=== PATIENT | male | born 1950 | race Caucasian/White ===

== ENCOUNTER 2018-06-01 07:25 | Day surgery (SDC) | payer MEDICARE, BC ==
[2018-05-26 11:14] VITALS: BMI 29.5
[~2018-06-01 07:25] MED LIST: LACTATED RINGERS 1,000 ML IV SCH; LIDOCAINE 1% 20 ML VIAL (10MG/ML) FOR IV START INTRADERMA PRN
[2018-06-01 08:03] VITALS: RESP 16; TEMP 97.1
[2018-06-01] MEDS ORDERED: LIDOCAINE 1% INJ 10MG/ML (20 ML MDV) ONE (08:40)
[2018-06-01] MEDS ORDERED: PROPOFOL 10 MG/ML 20 ML VIAL IV ONE (08:40)
[2018-06-01] MEDS ORDERED: MIDAZOLAM 2 MG/2 ML VIAL ONE (08:40)
[2018-06-01] MEDS ORDERED: fentaNYL (PF) 50 MCG/ML 2 ML AMP ONE (08:40)
--- NOTE | 2018-06-01 08:46 | P.GSHP ---
History of Present Illness H&P Date: 06/01/18 CHIEF COMPLAINT: Colon screen HISTORY OF PRESENT ILLNESS: The patient is a 68-year-old male who presents for colon screen. Lower endoscopy was offered for further evaluation and management. PAST MEDICAL HISTORY: Please see list. PAST SURGICAL HISTORY: Please see list. MEDICATIONS: Please see list. ALLERGIES: Please see list. SOCIAL HISTORY: No illicit drug use FAMILY HISTORY: No reports of Crohn disease or ulcerative colitis. REVIEW OF ORGAN SYSTEMS: CONSTITUTIONAL: No reports of fevers or chills. PHYSICAL EXAM: VITAL SIGNS: Stable GENERAL: Well-developed pleasant in no acute distress. HEENT: No scleral icterus. Extraocular movements grossly intact. Moist buccal mucosa. NECK: Supple without lymphadenopathy. CHEST: Unlabored respirations. Equal bilateral excursions. CARDIOVASCULAR: Regular rate and rhythm. Distal 2+ pulses. ABDOMEN: Soft, nontender, nondistended. MUSCULOSKELETAL: No clubbing, cyanosis, or edema. ASSESSMENT: 1. Colon screen. PLAN: 1. 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), History of Any Multi-Drug Resistant Organisms: None Reported Past Surgical History: Appendectomy, Cholecystectomy, Orthopedic Surgery Additional Past Surgical History / Comment(s): uvuloplasty, left hand little finger surgery, COLONOSCOPY Past Anesthesia/Blood Transfusion Reactions: Previous Problems w/ Anesthesia, Motion Sickness Additional Past Anesthesia/Blood Transfusion Reaction / Comment(s): diff breathing- "tube down too far in rt bronch" Smoking Status: Never smoker - Past Family History Sister(s) Family Medical History: Cancer Medications and Allergies Home Medications Medication Instructions Recorded Confirmed Type Aspirin [Adult Low Dose Aspirin EC] 81 mg PO DAILY 09/17/15 06/01/18 History Atorvastatin Calcium [Lipitor] 40 mg PO DAILY 09/17/15 06/01/18 History Clopidogrel Bisulfate [Plavix] 75 mg PO DAILY 09/17/15 06/01/18 History Cholecalciferol [Vitamin D3] 1,000 unit PO DAILY 10/02/16 06/01/18 History Ginkgo Biloba [place] Extract [Ginkgo] 60 mg PO DAILY 10/02/16 06/01/18 History [place]-3 Fatty Acids/Fish Oil [Fish 1 each PO DAILY 10/02/16 06/01/18 History Oil 1,000 mg Softgel] Allergies Allergy/AdvReac Type Severity Reaction Status Date / Time Sulfa (Sulfonamide Allergy headache Verified 06/01/18 07:52 Antibiotics) scotch 77 Allergy Rash/Hives- Uncoded 06/01/18 07:52 Surgical - Exam Vital Signs Temp Pulse Resp BP Pulse Ox 97.1 F L 61 16 137/82 99 06/01/18 07:55 06/01/18 07:55 06/01/18 07:55 06/01/18 07:55 06/01/18 07:55
--- NOTE | 2018-06-01 09:08 | P.PCN ---
Date of Procedure: 06/01/18 Description of Procedure: PREOPERATIVE DIAGNOSIS: Colonoscopy screening, high risk. Personal history of multiple colon polyps. Family history of malignant colon polyps. POSTOPERATIVE DIAGNOSIS: Colonoscopy screening, high risk. Personal history of multiple colon polyps. Family history of malignant colon polyps. Ascending colon polyp OPERATION: Colonoscopy to the ileocecal valve and appendiceal orifice. Colonoscopy with cold forceps biopsy SURGEON: Dimple Isidro MD. ANESTHESIA: MAC. INDICATIONS: The patient is a 68-year-old male who presents for colonoscopy screening. His last colonoscopy was 2 years ago with more than a 1/2 dozen polyps resected, high risk. Benefits and risks were described and informed consent was obtained. DESCRIPTION OF PROCEDURE: The patient had undergone Gatorade, MiraLAX and Dulcolax prep. He had been brought into the operating room and laid in the left lateral decubitus position. After adequate intravenous sedation, the rectum was examined with 2% lidocaine jelly. No inflamed external hemorrhoids were encountered. The prostate was soft and without nodularity. The rectal tone was within normal limits. No lesions were palpated in the rectal vault. An Olympus colonoscope was advanced until the ileocecal valve and appendiceal orifice were clearly viewed. The prep was good with visualization of mucosal ahmadi. No colitis was found. No arteriovenous malformation was encountered. Hyperplastic colon polyps between 3-4 mm were found along the ileocecal valve and cold biopsy forceps to completion. Retroflexion of the scope demonstrated no internal hemorrhoids without active bleeding or inflammation. The colon was desufflated. The patient had tolerated the procedure well. FINDINGS: No diverticulosis. No focal colitis. No arteriovenous malformation. Hyperplastic polyp along the ileocecal valve cold forceps biopsy to completion. Benign hyperplastic polyps of the sigmoid colon. RECOMMENDATIONS: Due to his multiple polyps and familial history, recommend repeat lower endoscopy in 3 years, 2020 Plan - Discharge Summary New Discharge Prescriptions: No Action Clopidogrel Bisulfate [Plavix] 75 mg PO DAILY Aspirin [Adult Low Dose Aspirin EC] 81 mg PO DAILY Atorvastatin Calcium [Lipitor] 40 mg PO DAILY Ginkgo Biloba [place] Extract [Ginkgo] 60 mg PO DAILY Cholecalciferol [Vitamin D3] 1,000 unit PO DAILY [place]-3 Fatty Acids/Fish Oil [Fish Oil 1,000 mg Softgel] 1 each PO DAILY Discharge Medication List Aspirin [Adult Low Dose Aspirin EC] 81 mg PO DAILY 09/17/15 [History] Atorvastatin Calcium [Lipitor] 40 mg PO DAILY 09/17/15 [History] Clopidogrel Bisulfate [Plavix] 75 mg PO DAILY 09/17/15 [History] Cholecalciferol [Vitamin D3] 1,000 unit PO DAILY 10/02/16 [History] Ginkgo Biloba [place] Extract [Ginkgo] 60 mg PO DAILY 10/02/16 [History] [place]-3 Fatty Acids/Fish Oil [Fish Oil 1,000 mg Softgel] 1 each PO DAILY [History]
[2018-06-01 09:28] VITALS: BP 114/75; PULSE 58
== END 2018-06-01 09:46 | disposition home or self-care (01) ==
LOC: ORWHC2ENDO 07:25
PROVIDERS: ATTEND Surgery Plastic and Reconstructive Surgery
DX: Z12.11 Encounter for screening for malignant neoplasm of colon (principal); D12.0 Benign neoplasm of cecum; K63.5 Polyp of colon; Z86.010 Personal history of colon polyps; Z80.0 Family history of malignant neoplasm of digestive organs; K21.9 Gastro-esophageal reflux disease without esophagitis; E78.5 Hyperlipidemia, unspecified; G43.809 Other migraine, not intractable, without status migrainosus; G47.33 Obstructive sleep apnea (adult) (pediatric); I49.9 Cardiac arrhythmia, unspecified; L40.9 Psoriasis, unspecified; E72.12 Methylenetetrahydrofolate reductase deficiency; Z99.89 Dependence on other enabling machines and devices; Z90.49 Acquired absence of other specified parts of digestive tract; Z85.828 Personal history of other malignant neoplasm of skin; Z86.73 Personal history of transient ischemic attack (TIA), and cerebral infarction without residual deficits; Z79.02 Long term (current) use of antithrombotics/antiplatelets; Z79.82 Long term (current) use of aspirin; Z79.899 Other long term (current) drug therapy; Z88.2 Allergy status to sulfonamides; Z91.048 Other nonmedicinal substance allergy status
CPT/HCPCS: 88305; 45380; J2250; J2001; J3010; J2704

== ENCOUNTER 2021-07-02 08:06 | Day surgery (SDC) | payer MEDICARE, BC ==
[2021-07-01 08:57] VITALS: BMI 28.8
--- NOTE | 2021-07-02 05:57 | P.GSHP ---
History of Present Illness H&P Date: 07/02/21 CHIEF COMPLAINT: GERD and colon screen HISTORY OF PRESENT ILLNESS: The patient is a 71-year-old male who presents with gastroesophageal reflux disease and need for colon screen. Upper and lower endoscopy were offered for further evaluation and management. PAST MEDICAL HISTORY: Please see list. PAST SURGICAL HISTORY: Please see list. MEDICATIONS: Please see list. ALLERGIES: Please see list. SOCIAL HISTORY: No illicit drug use FAMILY HISTORY: No reports of Crohn disease or ulcerative colitis. REVIEW OF ORGAN SYSTEMS: CONSTITUTIONAL: No reports of fevers or chills. GI: Denies any blood in stools or constipation. PHYSICAL EXAM: VITAL SIGNS: Stable GENERAL: Well-developed pleasant in no acute distress. HEENT: No scleral icterus. Extraocular movements grossly intact. Moist buccal mucosa. NECK: Supple without lymphadenopathy. CHEST: Unlabored respirations. Equal bilateral excursions. CARDIOVASCULAR: Regular rate and rhythm. Distal 2+ pulses. ABDOMEN: Soft, nondistended. MUSCULOSKELETAL: No clubbing, cyanosis, or edema. ASSESSMENT: 1. Gastroesophageal reflux disease 2. Colon screen. PLAN: 1. 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), uses CPAP History of Any Multi-Drug Resistant Organisms: None Reported Past Surgical History: Appendectomy, Cholecystectomy, Orthopedic Surgery Additional Past Surgical History / Comment(s): [facility] - uvuloplasty, left hand little finger repair surgery, COLONOSCOPY Past Anesthesia/Blood Transfusion Reactions: Previous Problems w/ Anesthesia, Motion Sickness Additional Past Anesthesia/Blood Transfusion Reaction / Comment(s): diff breathing- "tube down too far in rt bronch" Smoking Status: Never smoker - Past Family History Sister(s) Family Medical History: Cancer Additional Family Medical History / Comment(s): skin cancer Medications and Allergies Home Medications Medication Instructions Recorded Confirmed Type Aspirin [Adult Low Dose Aspirin EC] 81 mg PO DAILY 09/17/15 07/01/21 History Atorvastatin Calcium [Lipitor] 10 mg PO DAILY 09/17/15 07/01/21 History Clopidogrel Bisulfate [Plavix] 75 mg PO DAILY 09/17/15 07/01/21 History Cholecalciferol [Vitamin D3] 1,000 unit PO DAILY 10/02/16 07/01/21 History Ginkgo Biloba [place] Extract [Ginkgo] 60 mg PO DAILY 10/02/16 07/01/21 History [place]-3 Fatty Acids/Fish Oil [Fish 1 each PO DAILY 10/02/16 07/01/21 History Oil 1,000 mg Softgel] Omeprazole Magnesium [PriLOSEC] 20 mg PO DAILY 07/01/21 07/01/21 History Retinavites (Eye Vitamin) 1 tab PO DAILY 07/01/21 History Allergies Allergy/AdvReac Type Severity Reaction Status Date / Time Sulfa (Sulfonamide Allergy headache Verified 07/01/21 08:35 Antibiotics) scotch 77 Allergy Rash/Hives- Uncoded 07/01/21 08:35
[~2021-07-02 08:06] MED LIST changes: -LIDOCAINE 1% 20 ML VIAL (10MG/ML) FOR IV START INTRADERMA PRN
[2021-07-02] MEDS ORDERED: LIDOCAINE 1% (10MG/ML) FOR IV START INTRADERMA ONE (08:50)
[2021-07-02 08:56] VITALS: TEMP 97.8
[2021-07-02] MEDS ORDERED: PROPOFOL 10 MG/ML 20 ML VIAL IV ONE (09:12)
[2021-07-02] MEDS ORDERED: LIDOCAINE 1% INJ 10MG/ML (20 ML MDV) ONE (09:12)
--- NOTE | 2021-07-02 09:26 | P.PCN ---
Date of Procedure: 07/02/21 Description of Procedure: PREOPERATIVE DIAGNOSIS: Gastroesophageal reflux disease. POSTOPERATIVE DIAGNOSIS: Gastritis. Gastroesophageal reflux disease. OPERATION: Esophagogastroduodenoscopy with biopsies along antrum. SURGEON: Dimple Isidro MD ANESTHESIA: MAC. INDICATIONS: The patient is a 71-year-old male who presents with a history of reflux disease. Benefits and risks of the procedure were described. Informed consent was obtained. DESCRIPTION: The patient was brought into the endoscopy suite and laid in the left lateral decubitus position. An Olympus gastroscope was passed along the posterior oropharynx down to the distal esophagus where the squamocolumnar junction was encountered at 38 cm from the incisors. The stomach was entered and no bile reflux was found. Additional findings are listed below. Biopsies with cold forceps were obtained of the antrum. The first through third portion of the duodenum was examined and unremarkable. Retroflexion of the scope confirmed Hill grade 2 lower esophageal valve. The squamocolumnar junction demonstrated LA grade B erosive esophagitis. The stomach was desufflated. The patient tolerated the procedure well.A FINDINGS: Squamocolumnar junction 38 cm from the incisors. Diaphragmatic hiatus at 38 cm. Hill grade 2 lower esophageal valve. LA grade A erosive esophagitis. No active duodenitis. Chronic gastritis RECOMMENDATIONS: Upper endoscopy as needed.
--- NOTE | 2021-07-02 09:38 | P.PCN ---
Date of Procedure: 07/02/21 Description of Procedure: PREOPERATIVE DIAGNOSIS: Colonoscopy screening. Personal history colon polyps POSTOPERATIVE DIAGNOSIS: Colonoscopy screening. Personal history colon polyps Diverticulosis, scattered. OPERATION: Colonoscopy to the cecum, ileocecal valve and appendiceal orifice. SURGEON: Dimple Isidro MD. ANESTHESIA: MAC. INDICATIONS: The patient is a 71-year-old male who presents for colonoscopy screening. Benefits and risks were described and informed consent was obtained. DESCRIPTION OF PROCEDURE: The patient had undergone Sutab prep. The patient had been brought into the operating room and laid in the left lateral decubitus position. After adequate intravenous sedation, the rectum was examined with 2% lidocaine jelly. No external hemorrhoids were encountered. The prostate fossa was unremarkable. The rectal tone was within normal limits. No lesions were palpated in the rectal vault. An Olympus colonoscope was advanced until the cecum, ileocecal valve and appendiceal orifice were clearly viewed. The prep was good. Scattered diverticulosis was encountered. No colonic polyps were found. No evidence of focal colitis was found. Retroflexion of the scope demonstrated grade 1 internal hemorrhoids without active bleeding or inflammation. The colon was desufflated. The patient had tolerated the procedure well. Withdrawal time was over 6 minutes. FINDINGS: Aronchick preparation quality scale 2 (1-5) Internal hemorrhoids, grade 1 No external prolapsed hemorrhoids. No arteriovenous malformations. No adenomatous polyps. No focal colitis. Sigmoid diverticulosis RECOMMENDATIONS: Lower endoscopy in 3 years, 2023 Plan - Discharge Summary Discharge Rx Participant: No New Discharge Prescriptions: Continue Clopidogrel Bisulfate [Plavix] 75 mg PO DAILY Aspirin [Adult Low Dose Aspirin EC] 81 mg PO DAILY Atorvastatin Calcium [Lipitor] 10 mg PO DAILY Ginkgo Biloba [place] Extract [Ginkgo] 60 mg PO DAILY Cholecalciferol [Vitamin D3 (25 Mcg = 1000 Iu)] 1,000 unit PO DAILY [place]-3 Fatty Acids/Fish Oil [Fish Oil 1,000 mg Softgel] 1 each PO DAILY Omeprazole Magnesium [PriLOSEC] 20 mg PO DAILY Retinavites (Eye Vitamin) 1 tab PO DAILY Discharge Medication List Aspirin [Adult Low Dose Aspirin EC] 81 mg PO DAILY 09/17/15 [History] Atorvastatin Calcium [Lipitor] 10 mg PO DAILY 09/17/15 [History] Clopidogrel Bisulfate [Plavix] 75 mg PO DAILY 09/17/15 [History] Cholecalciferol [Vitamin D3 (25 Mcg = 1000 Iu)] 1,000 unit PO DAILY 10/02/16 [History] Ginkgo Biloba [place] Extract [Ginkgo] 60 mg PO DAILY 10/02/16 [History] [place]-3 Fatty Acids/Fish Oil [Fish Oil 1,000 mg Softgel] 1 each PO DAILY 10/02/16 [History] Omeprazole Magnesium [PriLOSEC] 20 mg PO DAILY 07/01/21 [History] Retinavites (Eye Vitamin) 1 tab PO DAILY 07/01/21 [History] Follow up Appointment(s)/Referral(s): Dimple Isidro MD [STAFF PHYSICIAN] - 07/15/21 Patient Instructions/Handouts: Gastritis (GEN), Diet for Stomach Ulcers and G astritis (GEN) Activity/Diet/Wound Care/Special Instructions: Start Plavix Wednesday07/04/2021. Repeat colonoscopy 3 years, 2023 Discharge Disposition: HOME SELF-CARE
[2021-07-02 10:14] VITALS: BP 114/72; PULSE 64; RESP 17
== END 2021-07-02 10:39 | disposition home or self-care (01) ==
LOC: ORWHC2ENDO 08:06
PROVIDERS: ATTEND Surgery Plastic and Reconstructive Surgery
DX: Z12.11 Encounter for screening for malignant neoplasm of colon (principal); K57.90 Diverticulosis of intestine, part unspecified, without perforation or abscess without bleeding; K21.9 Gastro-esophageal reflux disease without esophagitis; K29.50 Unspecified chronic gastritis without bleeding; Z79.02 Long term (current) use of antithrombotics/antiplatelets; Z79.82 Long term (current) use of aspirin; Z79.899 Other long term (current) drug therapy; J45.909 Unspecified asthma, uncomplicated; G47.33 Obstructive sleep apnea (adult) (pediatric); Z87.19 Personal history of other diseases of the digestive system; Z86.73 Personal history of transient ischemic attack (TIA), and cerebral infarction without residual deficits
CPT/HCPCS: 88305; 45378; 43239; J2001; J2704

== ENCOUNTER → 2023-06-21 | Outpatient (CLI) | payer MEDICARE, BC ==
--- NOTE | 2023-06-21 19:16 | MR ---
EXAMINATION TYPE: MR brain wo con DATE OF EXAM: 06/21/2023 3:11 PM COMPARISON: Same day MRI Angio.. CLINICAL INDICATION:Male, 73 years old with history of I67.9 G45.1; Memory loss TECHNIQUE: Multi planar, multi sequence imaging was performed through the brain including: T1, T2, In version recovery, Diffusion weighted imaging, and gradient echo imaging. No gadolinium was given. FINDINGS: Ventricular dilation in proportion to cerebral atrophy. Bilateral The chaviar-white junctions, ventricular system, and cisterns appear unremarkable. Midline structures sh ow no abnormality. Diffusion-weighted imaging shows no evidence of restricted diffusion. The suscepti bility weighted images do not reveal any evidence for micro-hemorrhage. The bone marrow signal is within normal limits. Paranasal sinuses and mastoid air cells: No significant paranasal sinus disease. Visualized orbits: Orbital contents are intact. IMPRESSION: No evidence of intracranial mass or acute/subacute infarct.
--- NOTE | 2023-06-21 19:21 | MR ---
EXAMINATION TYPE: MR angio head wo/neck wo/w con DATE OF EXAM: 06/21/2023 3:10 PM CLINICAL INDICATION:Male, 73 years old with history of I67.9 G45.1; Memory Loss, Numbness neck and ar ms COMPARISON: MRI brain same day Technical: MRA brain: 2D and 3-D [id number] Axial with MIP and 3-D reconstruction. Performed on a separate w orkstation. MRA neck: Multiplanar, multi-sequence imaging as well as [id number] and phase was performed extra cranial vasculature of the neck. 3-D reformatted images and maximum intensity projection reformatted images were submitted for evaluation, these are performed on a separate workstation. IV Contrast: 8.5 cc Gadavist Findings: Vertebral arteries: The vertebral arteries are patent. Vertebral arteries are: Codominant. Basilar artery: The basilar artery is intact. The basilar artery bifurcation is normal. Internal Carotid arteries: The cervical, petrous, cavernous and supraclinoid segments are normal. STEPHANIE: Patent with no evidence of aneurysm. ACOM: Present without evidence of aneurysm. MCA: Patent with no evidence of aneurysm. LABORATORY CHEMICAL ASSISTANT: Patent with no evidence of aneurysm. PCOM: Hypoplastic bilaterally. RIGHT CAROTID SYSTEM: The common carotid artery is patent. The carotid bifurcations demonstrates no e vidence for hemodynamically significant stenosis. The internal carotid artery is patent. LEFT CAROTID SYSTEM: The common carotid artery is patent. The carotid bifurcations demonstrates no e vidence for hemodynamically significant stenosis. The internal carotid artery is patent. The origins of the great vessels and vertebral arteries appear unremarkable. Left dominant vertebral artery. Diminutive right vertebral artery. IMPRESSION: 1. No evidence of intracranial aneurysm or significant stenosis. 2. Diminutive right vertebral artery with dominant left. 3. No evidence of significant stenosis at the carotid bifurcations. The carotid and vertebral arteri es are patent. 4. No evidence aneurysm.
== END | disposition home or self-care (01) ==
LOC: RADMRIMAIN 13:18
PROVIDERS: ATTEND Psychiatry & Neurology Neurology
DX: I67.9 Cerebrovascular disease, unspecified (principal); G45.1 Carotid artery syndrome (hemispheric)
CPT/HCPCS: 70544; 70549; 70551; A9585

== ENCOUNTER 2024-02-06 15:58 | Inpatient (IN) | payer BC, MEDICARE ==
[2024-02-06] MEDS ORDERED: HEPARIN SODIUM 1,000 UN/ML (10ML VL) IV PRN (16:02)
--- NOTE | 2024-02-06 16:03 | ED ---
Recheck HPI - General Stated Complaint: Chest pain Time Seen by Provider: 02/06/24 16:00 Source: RN notes reviewed, old records reviewed Mode of arrival: EMS Limitations: no limitations - History of Present Illness Initial Comments: This is a 73-year-old male to the ER for evaluation patient presents today for evaluation regards to non-STEMI patient transferred to us for elevated troponin and non-ST elevation OR. MD Complaint: abnormal lab (Evaded troponin non-STEMI ACS) -: hour(s) Returns Today for: Called Because of Abnormal Lab/Test Context: called for abnormal lab result Associated Symptoms: none Treatments Prior to Arrival: other - Related Data Home Medications Medication Instructions Recorded Confirmed Aspirin [Adult Low Dose Aspirin EC] 81 mg PO DAILY 09/17/15 02/06/24 Clopidogrel Bisulfate [Plavix] 75 mg PO DAILY 09/17/15 02/06/24 Cholecalciferol [Vitamin D3 (25 25 mcg PO DAILY 10/02/16 02/06/24 Mcg = 1000 Iu)] Omeprazole Magnesium [PriLOSEC] 20 mg PO DAILY 07/01/21 02/06/24 Galantamine HBr [Razadyne ER] 24 mg PO DAILY 02/06/24 02/06/24 Krill Oil(Unknown Dose) 1 cap PO DAILY 02/06/24 02/06/24 Medium Chain Triglycerides [Mct 1 dose PO DAILY 02/06/24 02/06/24 Oil] Previous Rx's Medication Instructions Recorded Atorvastatin [Lipitor] 80 mg PO DAILY #90 tab 02/08/24 Losartan [Cozaar] 25 mg PO HS #90 tab 02/08/24 Metoprolol Succinate (ER) [Toprol 25 mg PO DAILY #90 tab 02/08/24 XL] Nitroglycerin Sl Tabs [Nitrostat] 0.4 mg SUBLINGUAL Q5M PRN #25 tab 02/08/24 Allergies Allergy/AdvReac Type Severity Reaction Status Date / Time Sulfa (Sulfonamide Allergy headache Verified 02/06/24 19:26 Antibiotics) scotch 77 Allergy Rash/Hives- Uncoded 02/06/24 19:26 Review of Systems ROS Statement: Those systems with pertinent positive or pertinent negative responses have been documented in the HPI. ROS Other: All systems not noted in ROS Statement are negative. 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), uses CPAP History of Any Multi-Drug Resistant Organisms: None Reported Past Surgical History: Appendectomy, Cholecystectomy, Orthopedic Surgery Additional Past Surgical History / Comment(s): UUUP - uvuloplasty, left hand little finger repair surgery, COLONOSCOPY Past Anesthesia/Blood Transfusion Reactions: Previous Problems w/ Anesthesia, Motion Sickness Additional Past Anesthesia/Blood Transfusion Reaction / Comment(s): diff breathing- "tube down too far in rt bronch" Smoking Status: Never smoker - Past Family History Sister(s) Family Medical History: Cancer Additional Family Medical History / Comment(s): skin cancer General Exam General appearance: alert, in no apparent distress Head exam: Present: atraumatic, normocephalic, normal inspection Eye exam: Present: normal appearance, PERRL, EOMI. Absent: scleral icterus, conjunctival injection, periorbital swelling ENT exam: Present: normal exam, mucous membranes moist Neck exam: Present: normal inspection. Absent: tenderness, meningismus, lymphadenopathy Respiratory exam: Present: normal lung sounds bilaterally. Absent: respiratory distress, wheezes, rales, rhonchi, stridor Cardiovascular Exam: Present: regular rate, normal rhythm, normal heart sounds. Absent: systolic murmur, diastolic murmur, rubs, gallop, clicks GI/Abdominal exam: Present: soft, normal bowel sounds. Absent: distended, tenderness, guarding, rebound, rigid Extremities exam: Present: normal inspection, full ROM, normal capillary refill. Absent: tenderness, pedal edema, joint swelling, calf tenderness Back exam: Present: normal inspection Neurological exam: Present: alert, oriented X3, CN II-XII intact Psychiatric exam: Present: normal affect, normal mood Skin exam: Present: warm, dry, intact, normal color. Absent: rash Course Vital Signs 02/06/24 02/06/24 02/06/24 16:00 17:21 19:05 Temperature 98 F Pulse Rate 54 L 58 L Pulse Rate [ Leisure Travel Agent ] Respiratory 18 16 Rate Blood Pressure 103/64 123/71 O2 Sat by Pulse 98 95 Oximetry 02/06/24 02/07/24 02/07/24 22:50 03:52 04:00 Temperature Pulse Rate 58 L 58 L 60 Pulse Rate [ Leisure Travel Agent ] Respiratory 16 16 16 Rate Blood Pressure 124/50 97/54 112/69 O2 Sat by Pulse 98 96 97 Oximetry 02/07/24 02/07/24 02/07/24 07:00 07:33 08:01 Temperature Pulse Rate 58 L 66 Pulse Rate [ 68 Leisure Travel Agent ] Respiratory 18 16 Rate Blood Pressure 122/75 124/75 O2 Sat by Pulse 96 96 Oximetry 02/07/24 08:51 Temperature Pulse Rate 61 Pulse Rate [ Leisure Travel Agent ] Respiratory 16 Rate Blood Pressure 122/67 O2 Sat by Pulse 98 Oximetry - Reevaluation(s) Reevaluation #1: 02/06/24 17:21 Medical records reviewed Reevaluation #2: 02/06/24 17:21 Patient's symptoms improved no chest pain Reevaluation #3: 02/06/24 17:21 Patient informed of results questions answered Reevaluation #4: Was pt. sent in by a medical professional or institution (, PA, AIR ANALYSIS ENGINEERING TECHNICIAN, urgent care, hospital, or [place] [facility]...) When possible be specific @ -no Did you speak to anyone other than the patient for history (EMS, parent, family, police, friend...)? What history was obtained from this source @ -no Did you review nursing and triage notes (agree or disagree)? Why? @ -agree Are old charts reviewed (outside hosp., previous admission, EMS record, old EKG, old radiological studies, urgent care reports/EKG's, [place] [facility] records)? Report findings @ -yes Differential Diagnosis (chest pain, altered mental status, abdominal pain women, abdominal pain men, vaginal bleeding, weakness, fever, dyspnea, syncope, headache, dizziness, GI bleed, back pain, seizure, CVA, palpatations, mental health, musculoskeletal)? @ -prior EKG interpreted by me (3pts min.). @ -yes X-rays interpreted by me (1pt min.). @ -no CT interpreted by me (1pt min.). @ -no U/S interpreted by me (1pt. min.). @ -no What testing was considered but not performed or refused? (CT, X-rays, U/S, labs)? Why? @ -none What meds were considered but not given or refused? Why? @ -none Did you discuss the management of the patient with other professionals (professionals i.e. , PA, AIR ANALYSIS ENGINEERING TECHNICIAN, lab, RT, psych nurse, vp digital marketing social media and crm, sign language interpreter, teacher, program officer, pillowcase cleaner)? Give summary @ -no Was smoking cessation discussed for >3mins.? @ -no Was critical care preformed (if so, how long)? @ -yes31 Were there social determinants of health that impacted care today? How? (Homelessness, low income, unemployed, alcoholism, drug addiction, transportatio n, low edu. Level, literacy, decrease access to med. care, [place] [facility], rehab)? @ -none Was there de-escalation of care discussed even if they declined (Discuss DNR or withdrawal of care, Hospice)? DNR status @ -no What co-morbidities impacted this encounter? (DM, HTN, Smoking, COPD, CAD, Cancer, CVA, ARF, Chemo, Hep., AIDS, mental health diagnosis, sleep apnea, morbid obesity)? @ -none Was patient admitted / discharged? Hospital course, mention meds given and route, prescriptions, significant lab abnormalities, going to OR and other pertinent info. @ - 73 male to the ER for evaluation today. Patient presents today for evaluation regards to elevated troponin with chest pain, typical chest pain and anterior left-sided left jaw left arm. Patient will be admitted for cardiology observation with non-ST elevated OR elevated troponin Admitted Undiagnosed new problem with uncertain prognosis? @ -no Drug Therapy requiring intensive monitoring for toxicity (Heparin, Nitro, Insulin, Cardizem)? @ -no Were any procedures done? @ -no Diagnosis/symptom? @ -Non-STEMI Acute, or Chronic, or Acute on Chronic? @ -Acute Uncomplicated (without systemic symptoms) or Complicated (systemic symptoms)? @ -Complicated Side effects of treatment? @ -no Exacerbation, Progression, or Severe Exacerbation? @ -exacerbation Poses a threat to life or bodily function? How? (Chest pain, USA, OR, pneumonia, PE, COPD, DKA, ARF, appy, cholecystitis, CVA, Diverticulitis, Homicidal, Suicidal, threat to staff... and all critical care pts) @ -yes with significant non-ST elevation OR Reevaluation #5: Differential Chest Pain: Stable Angina, Unstable Angina, STEMI, NSTEMI Aortic Dissection, Pneumothorax, Musculoskeletal, Esophageal Spasm GERD, Cholecystitis, Pancreatitis, Zoster, th is is not meant to be an all-inclusive list. - Consultations Consultation #1: Spoke with [facility] who agrees to admit this patient Medical Decision Making - Medical Decision Making 73 male to the ER for evaluation today. Patient presents today for evaluation regards to elevated troponin with chest pain, typical chest pain and anterior left-sided left jaw left arm. Patient will be admitted for cardiology observation with non-ST elevated OR elevated troponin - Lab Data Result diagrams: 02/06/24 16:19 02/08/24 10:29 Lab Results 02/06/24 02/06/24 02/06/24 Range/Units 16:19 16:19 16:19 WBC 6.1 (3.8-10.6) k/uL RBC 4.70 (4.30-5.90) m/uL Hgb 14.3 (13.0-17.5) gm/dL Hct 43.4 (39.0-53.0) % MCV 92.4 (80.0-100.0) fL MCH 30.4 (25.0-35.0) pg MCHC 32.9 (31.0-37.0) g/dL RDW 13.0 (11.5-15.5) % Plt Count 141 L (150-450) k/uL MPV 8.2 Neutrophils % 58 % Lymphocytes % 31 % Monocytes % 6 % Eosinophils % 2 % Basophils % 1 % Neutrophils # 3.5 (1.3-7.7) k/uL Lymphocytes # 1.9 (1.0-4.8) k/uL Monocytes # 0.4 (0-1.0) k/uL Eosinophils # 0.2 (0-0.7) k/uL Basophils # 0.0 (0-0.2) k/uL PT 10.9 (10.0-12.5) sec INR 1.0 (<1.2) APTT 76.0 H (22.0-30.0) sec Sodium 138 (137-145) mmol/L Potassium 5.3 H (3.5-5.1) mmol/L Chloride 108 H (98-107) mmol/L Carbon Dioxide 24 (22-30) mmol/L Anion Gap 6 mmol/L BUN 23 H (9-20) mg/dL Creatinine 0.76 (0.66-1.25) mg/dL Est GFR (CKD-EPI)AfAm >90 (>60 ml/min/1.73 sqM) Est GFR (CKD-EPI)NonAf >90 (>60 ml/min/1.73 sqM) Glucose 77 (74-99) mg/dL Calcium 8.8 (8.4-10.2) mg/dL Phosphorus 3.6 (2.5-4.5) mg/dL Magnesium 2.1 (1.6-2.3) mg/dL Total Bilirubin 1.3 (0.2-1.3) mg/dL AST 48 (17-59) U/L ALT 17 (4-49) U/L Alkaline Phosphatase 71 (38-126) U/L Troponin I (0.000-0.034) ng/mL NT-Pro-B Natriuret Pep 50 pg/mL Total Protein 7.2 (6.3-8.2) g/dL Albumin 4.3 (3.5-5.0) g/dL 02/06/24 Range/Units 16:19 WBC (3.8-10.6) k/uL RBC (4.30-5.90) m/uL Hgb (13.0-17.5) gm/dL Hct (39.0-53.0) % MCV (80.0-100.0) fL MCH (25.0-35.0) pg MCHC (31.0-37.0) g/dL RDW (11.5-15.5) % Plt Count (150-450) k/uL MPV Neutrophils % % Lymphocytes % % Monocytes % % Eosinophils % % Basophils % % Neutrophils # (1.3-7.7) k/uL Lymphocytes # (1.0-4.8) k/uL Monocytes # (0-1.0) k/uL Eosinophils # (0-0.7) k/uL Basophils # (0-0.2) k/uL PT (10.0-12.5) sec INR (<1.2) APTT (22.0-30.0) sec Sodium (137-145) mmol/L Potassium (3.5-5.1) mmol/L Chloride (98-107) mmol/L Carbon Dioxide (22-30) mmol/L Anion Gap mmol/L BUN (9-20) mg/dL Creatinine (0.66-1.25) mg/dL Est GFR (CKD-EPI)AfAm (>60 ml/min/1.73 sqM) Est GFR (CKD-EPI)NonAf (>60 ml/min/1.73 sqM) Glucose (74-99) mg/dL Calcium (8.4-10.2) mg/dL Phosphorus (2.5-4.5) mg/dL Magnesium (1.6-2.3) mg/dL Total Bilirubin (0.2-1.3) mg/dL AST (17-59) U/L ALT (4-49) U/L Alkaline Phosphatase (38-126) U/L Troponin I 0.453 H* (0.000-0.034) ng/mL NT-Pro-B Natriuret Pep pg/mL Total Protein (6.3-8.2) g/dL Albumin (3.5-5.0) g/dL - EKG Data -: EKG Interpreted by Me (EKG is sinus bradycardia 58 FL 155 QRS 93 QTc 411) Critical Care Time Critical Care Time: Yes Total Critical Care Time: 31 Disposition Clinical Impression: NSTEMI (non-ST elevated myocardial infarction), Chest pain Disposition: ADMITTED IP TO THIS HOSP Condition: Serious Is patient prescribed a controlled substance at d/c from ED?: No Time of Disposition: 18:00
[2024-02-06 16:30] LABS: Basophils % (A) 1 %; Eosinophils # (A) 0.2 k/uL (0-0.7); Eosinophils % (A) 2 %; HCT 43.4 % (39.0-53.0); HGB 14.3 gm/dL (13.0-17.5); Lymphocytes # (A) 1.9 k/uL (1.0-4.8); Lymphocytes % (A) 31 %; MCH 30.4 pg (25.0-35.0); MCHC 32.9 g/dL (31.0-37.0); MCV 92.4 fL (80.0-100.0); Mean Platelet Volume 8.2; Monocytes # (A) 0.4 k/uL (0-1.0); Monocytes % (A) 6 %; Neutrophils # (A) 3.5 k/uL (1.3-7.7); Neutrophils % (A) 58 %; Platelet Count 141 k/uL (150-450); WBC 6.1 k/uL (3.8-10.6)
[2024-02-06 16:40] LABS: Prothrombin Time 10.9 sec (10.0-12.5)
[2024-02-06] MEDS: HEPARIN SOD,PORK IN 0.45% NACL 25,000 UNIT in 0.45% NACL 1 250ML.BAG IV SCH (16:50)
[2024-02-06] MEDS: SODIUM CHLORIDE 0.9% 1,000 ML IV STA (16:57)
[2024-02-06 17:46] LABS: ALT 17 U/L (4-49); AST 48 U/L (17-59); African American GFR (CKD) >90 (>60 ml/min/1.73 sqM); Albumin 4.3 g/dL (3.5-5.0); Alkaline Phosphatase 71 U/L (38-126); Anion Gap 6 mmol/L; Blood Urea Nitrogen 23 mg/dL (9-20); Calcium 8.8 mg/dL (8.4-10.2); Carbon Dioxide 24 mmol/L (22-30); Chloride 108 mmol/L (98-107); Glucose 77 mg/dL (74-99); Magnesium 2.1 mg/dL (1.6-2.3); Non-African American GFR(CKD) >90 (>60 ml/min/1.73 sqM); Phosphorus 3.6 mg/dL (2.5-4.5); Sodium 138 mmol/L (137-145); Total Bilirubin 1.3 mg/dL (0.2-1.3); Total Protein 7.2 g/dL (6.3-8.2)
[2024-02-06 17:48] LABS: Potassium 5.3 mmol/L (3.5-5.1)
[2024-02-06 17:55] LABS: NT-Pro-B-Type Natriuretic Pept 50 pg/mL
[2024-02-06] MEDS ORDERED: NITROGLYCERIN SL TABS 0.4 MG TAB SUBLINGUAL PRN (18:00)
[2024-02-06] MEDS ORDERED: MORPHINE SULFATE 4 MG/ML SYRINGE IV PRN (18:00)
[2024-02-06] MEDS: ASPIRIN 81 MG PO STA (19:03)
[2024-02-07] MEDS ORDERED: ALPRAZolam 0.25 MG TAB PO PRN (07:58)
[2024-02-07] MEDS ORDERED: ALPRAZolam 0.5 MG TAB PO PRN (07:58)
[2024-02-07] MEDS ORDERED: NITROGLYCERIN SL TABS 0.4 MG TAB SUBLINGUAL PRN (07:58)
[2024-02-07] MEDS: ATORVASTATIN 80 MG TAB PO SCH (08:47)
[2024-02-07] MEDS: SODIUM CHLORIDE 0.9% 1,000 ML IV SCH ×2 (08:49→15:33)
[2024-02-07] MEDS ORDERED: LIDOCAINE 1% INJ 10MG/ML (20 ML MDV) ONE (08:50)
[2024-02-07] MEDS ORDERED: VERAPAMIL 2.5 MG/ML 2 ML AMP ONE (08:50)
[2024-02-07] MEDS: ASPIRIN 325 MG TAB PO STA (08:55)
[2024-02-07] MEDS: ASPIRIN 81 MG PO SCH (08:55)
[2024-02-07] MEDS: ATORVASTATIN 80 MG TAB PO STA (08:56)
[2024-02-07] MEDS ORDERED: ASPIRIN 325 MG TAB PO SCH (09:00)
[2024-02-07] MEDS ORDERED: HEPARIN SODIUM 1,000 UN/ML (10ML VL) ONE (09:12)
[2024-02-07] MEDS ORDERED: fentaNYL (PF) 50 MCG/ML 2 ML AMP ONE (09:12)
[2024-02-07] MEDS: MIDAZOLAM 2 MG/2 ML VIAL IVP ONE (09:30)
[2024-02-07] MEDS: LIDOCAINE 1% INJ 10MG/ML (5 ML VIAL-PF) SQ ONE (09:35)
[2024-02-07] MEDS: VERAPAMIL SYRINGE (5 MG/10 ML) INTRAARTER ONE (09:37)
[2024-02-07] MEDS: fentaNYL (PF) 50 MCG/ML 2 ML AMP IVP ONE (09:38)
[2024-02-07] MEDS: HEPARIN SODIUM 1,000 UN/ML (10ML VL) IVP ONE ×2 (09:39→09:56)
[2024-02-07] MEDS: SODIUM CHLORIDE 0.9% 500 ML 500 ML IV ONE (09:41)
[2024-02-07] MEDS: IOPAMIDOL-370 100ML BTL INJ ONE ×4 (10:22→11:20)
[2024-02-07] MEDS: NITROGLYCERIN 1000MCG/10ML SYRINGE INTRACORON ONE ×4 (10:23→11:13)
[2024-02-07 11:07] LABS: Chol/HDL Ratio 4.22 Ratio
[2024-02-07] MEDS: HYDROmorphone 0.5 MG/0.5 ML SYRINGE IVP ONE (11:07)
[2024-02-07] MEDS ORDERED: CLOPIDOGREL 75 MG TAB ONE (11:17)
[2024-02-07] MEDS: CLOPIDOGREL 75 MG TAB PO ONE (11:22)
[2024-02-07 11:28] LABS: African American GFR (CKD) >90 (>60 ml/min/1.73 sqM); Anion Gap 5 mmol/L; Blood Urea Nitrogen 19 mg/dL (9-20); Calcium 8.7 mg/dL (8.4-10.2); Carbon Dioxide 23 mmol/L (22-30); Chloride 110 mmol/L (98-107); Glucose 84 mg/dL (74-99); Non-African American GFR(CKD) 90 (>60 ml/min/1.73 sqM); Potassium 4.1 mmol/L (3.5-5.1); Sodium 138 mmol/L (137-145)
--- NOTE | 2024-02-07 13:04 | P.CRDCN ---
History of Present Illness Consult date: 02/07/24 Reason for Consult (text): NSTEMI History of present illness: History of present illness: This is a 73-year-old male with past medical history of 2 TIAs 15 years ago, obstructive sleep apnea on CPAP, gastroesophageal reflux disease, hyperlipid emia. Patient states that he developed mid chest pain that radiated to his jaw. He was at rest at the time and drinking tea. He has never had anything like this before. He is usually very active and uses an elliptical machine on a regular basis. He denies having any chest pain at the time of this evaluation. Patient is seen today in the emergency center waiting for bed on the cardiac stepdown unit. He has been started on heparin drip, morphine, aspirin and Nitrostat. Patient initially presented to [facility] was transferred to [facility] ER. EKG sinus rhythm with no acute ST changes. Hemoglobin 14.3, platelet count 141. INR 1. Sodium 138, potassium 5.3, BUN 23 creatinine 0.76. Troponins 0.453, 0.617, 0.723. Liver function tests are normal. Magnesium 2.1. Phosphorus 3.6. proBNP 50. Home cardiac medications: Aspirin 81 mg daily, Plavix 75 mg daily. Review Of Systems: At the time of my exam: CONSTITUTIONAL: Denies fever or chills. HEENT: Denies blurred vision, vision changes, or eye pain. Denies hemoptysis CARDIOVASCULAR: Denies chest pain. Denies orthopnea. Denies PND. Denies palpitations RESPIRATORY: Denies shortness of breath. GASTROINTESTINAL: Denies abdominal pain. Denies nausea or vomiting. HEMATOLOGIC: Denies bleeding disorders. GENITOURINARY: Denies any blood in urine. SKIN: Denies pruitis. Denies rash. Physical examination: Gen: This is a 73-year-old male in no acute distress VS: reviewed blood pressure 122/75, heart rate 58, pulse ox 96% on room air. HEENT: Head is atraumatic, normocephalic. Pupils equal, round. Sclerae is anicteric. NECK: Supple. No JVD. LUNGS: Clear to auscultation. No wheezes or rhonchi. No intercostal retr actions. HEART: Regular rate and rhythm. ABDOMEN: Soft No tenderness. EXTREMITIES: No pedal edema. No calf tenderness. NEUROLOGICAL: Patient is awake, alert and oriented x3. Assessment: Non-ST elevated myocardial infarction TIA x 2 Hyperlipidemia Obstructive sleep apnea on CPAP Gastroesophageal reflux disease Plan: Resume patient's home cardiac medications Continue heparin drip Patient will be scheduled for cardiac catheterization today with Dr. KAELA Hood Start patient on IV fluids 75 cc/h Obtain 2-D echocardiogram and Doppler study to assess cardiac structure and function Further recommendations to follow based upon clinical course Thank you kindly for this consultation. Nurse practitioner note has been reviewed, I agree with documented findings and plan of care. Patient was seen and examined. 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), uses CPAP History of Any Multi-Drug Resistant Organisms: None Reported Past Surgical History: Appendectomy, Cholecystectomy, Orthopedic Surgery Additional Past Surgical History / Comment(s): UUUP - uvuloplasty, left hand little finger repair surgery, COLONOSCOPY Past Anesthesia/Blood Transfusion Reactions: Previous Problems w/ Anesthesia, Motion Sickness Additional Past Anesthesia/Blood Transfusion Reaction / Comment(s): diff breathing- "tube down too far in rt bronch" Smoking Status: Never smoker - Past Family History Sister(s) Family Medical History: Cancer Additional Family Medical History / Comment(s): skin cancer Medications and Allergies Home Medications Medication Instructions Recorded Confirmed Type Aspirin [Adult Low Dose Aspirin EC] 81 mg PO DAILY 09/17/15 02/06/24 History Clopidogrel Bisulfate [Plavix] 75 mg PO DAILY 09/17/15 02/06/24 History Cholecalciferol [Vitamin D3 (25 25 mcg PO DAILY 10/02/16 02/06/24 History Mcg = 1000 Iu)] Omeprazole Magnesium [PriLOSEC] 20 mg PO DAILY 07/01/21 02/06/24 History Galantamine HBr [Razadyne ER] 24 mg PO DAILY 02/06/24 02/06/24 History Krill Oil(Unknown Dose) 1 cap PO DAILY 02/06/24 02/06/24 History Medium Chain Triglycerides [Mct 1 dose PO DAILY 02/06/24 02/06/24 History Oil] Sildenafil Citrate [Viagra] 100 mg PO DAILY PRN 02/06/24 02/06/24 History Allergies Allergy/AdvReac Type Severity Reaction Status Date / Time Sulfa (Sulfonamide Allergy headache Verified 02/06/24 19:26 Antibiotics) scotch 77 Allergy Rash/Hives- Uncoded 02/06/24 19:26 Physical Exam Vitals: Vital Signs Temp Pulse Resp BP Pulse Ox 02/07/24 07:00 58 L 18 122/75 96 02/07/24 04:00 60 16 112/69 97 02/07/24 03:52 58 L 16 97/54 96 02/06/24 22:50 58 L 16 124/50 98 02/06/24 19:05 58 L 16 123/71 95 02/06/24 17:21 54 L 18 103/64 98 02/06/24 16:00 98 F Intake and Output 02/06/24 02/07/24 02/07/24 22:59 06:59 14:59 Other: Weight 81.647 kg Results 02/06/24 16:19 02/07/24 06:55 Cardiac Enzymes 02/06/24 02/06/24 02/06/24 Range/Units 16:19 16:19 19:01 AST 48 (17-59) U/L Troponin I 0.453 H* 0.617 H* (0.000-0.034) ng/mL 02/06/24 Range/Units 22:32 AST (17-59) U/L Troponin I 0.723 H* (0.000-0.034) ng/mL Coagulation 02/06/24 Range/Units 16:19 PT 10.9 (10.0-12.5) sec APTT 76.0 H (22.0-30.0) sec CBC 02/06/24 Range/Units 16:19 WBC 6.1 (3.8-10.6) k/uL RBC 4.70 (4.30-5.90) m/uL Hgb 14.3 (13.0-17.5) gm/dL Hct 43.4 (39.0-53.0) % Plt Count 141 L (150-450) k/uL Comprehensive Metabolic Panel 02/06/24 Range/Units 16:19 Sodium 138 (137-145) mmol/L Potassium 5.3 H (3.5-5.1) mmol/L Chloride 108 H (98-107) mmol/L Carbon Dioxide 24 (22-30) mmol/L BUN 23 H (9-20) mg/dL Creatinine 0.76 (0.66-1.25) mg/dL Glucose 77 (74-99) mg/dL Calcium 8.8 (8.4-10.2) mg/dL AST 48 (17-59) U/L ALT 17 (4-49) U/L Alkaline Phosphatase 71 (38-126) U/L Total Protein 7.2 (6.3-8.2) g/dL Albumin 4.3 (3.5-5.0) g/dL Current Medications Generic Name Dose Route Start Last Admin Trade Name Freq PRN Reason Stop Dose Admin Aspirin 325 mg 02/07/24 09:00 Aspirin 325 Mg Tab PO DAILY ERNESTINA Heparin Sodium (Porcine) 0 unit 02/06/24 16:02 Heparin Sodium 1,000 Un/Ml (10ml Vl) IV PER PROTOCOL PRN Low PTT Protocol Heparin Sodium/Sodium Chloride 250 mls @ 9.798 mls/hr 02/06/24 16:30 02/06/24 16:50 25,000 unit/ Sodium Chloride IV 12 units/kg/hr .Q24H ERNESTINA 9.798 mls/hr Administration Protocol 12 UNITS/KG/HR Sodium Chloride 1,000 mls @ 20 mls/hr 02/06/24 16:02 02/06/24 16:57 Saline 0.9% IV 02/07/24 16:01 20 mls/hr .Q24H STA Administration Morphine Sulfate 4 mg 02/06/24 18:00 Morphine Sulfate 4 Mg/Ml Syringe IV Q4HR PRN Chest Pain Nitroglycerin 0.4 mg 02/06/24 18:00 Nitroglycerin Sl Tabs 0.4 Mg Tab SUBLINGUAL Q5M PRN Chest Pain Intake and Output 02/06/24 02/07/24 02/07/24 22:59 06:59 14:59 Other: Weight 81.647 kg 02/06/24 16:19 02/06/24 16:19
[2024-02-07] MEDS: ACETAMINOPHEN TAB 500 MG TAB PO PRN (13:24)
[2024-02-07] MEDS: DONEPEZIL 10 MG TAB PO SCH (14:21)
[2024-02-07] MEDS: PANTOPRAZOLE 40 MG TABLET PO SCH (14:21)
--- NOTE | 2024-02-07 14:24 | CC ---
CARDIAC CATHETERIZATION REPORT PROCEDURES PERFORMED: 1. Left heart catheterization, coronary angiography. 2. PTCA and stenting of proximal and mid LAD with 2 drug-eluting stents. 3. PTCA of second major diagonal branch. 4. Intravascular ultrasound of LAD. PERFORMED BY: Dr. Tuan Hood. ANESTHESIA: Moderate conscious sedation time was 108 minutes. Patient was administered Versed and Dilaudid. Oxygen saturation, hemodynamics, and EKG were monitored closely. CLINICAL INFORMATION: Mr. Orestes Navas is a 73-year-old gentleman with a history of hypertension, CVA, and hyperlipidemia. He apparently had TIA with good recovery, has some memory issues. Comes in to the hospital because of episode of chest pain suggestive of angina. Troponin is elevated. EKG is unremarkable. Clinical picture is that of a non-ST- elevation OR. Patient has elevated cholesterol, but has not been taking statins. He was seen and evaluated by Dr. Jordan, advised cardiac cath. 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 He understands all details and wishes to proceed with the procedure. PROCEDURE NOTE: Under local assistance and strict aseptic precautions, a 6-Dutch introducer was placed in the right radial artery. Using a JL3.5 and JR4 catheters, I performed coronary angiography and also same right coronary catheter was used to check LV pressures, LV- gram was not performed. The patient had sort of a bovine arch. It was very difficult to perform coronary angiography because of tortuosity of the arch. However, coronary angiography was performed and LV pressures were also obtained. Following this, I proceeded with intervention of the LAD which had 2 tandem lesions of about 80% to 90% and 80% to 85% located in the proximal and midportion at the origin of the small diagonal branch proximally and large diagonal branch in the midportion. This intervention was performed and following the intervention, the sheath was taken out and TR band applied. The patient was sent to the room in a stable condition. Saturation of the fingers of the right hand was 94%. The excellent angiographic result was achieved. CARDIAC CATHETERIZATION FINDINGS: The left ventricular end-diastolic pressure was about 10 mmHg without any gradient across aortic valve. CORONARY ANGIOGRAPHY FINDINGS: Right coronary artery dominant vessel proximal 40% lesion, large caliber, super dominant vessel distally bifurcates into large PLV, smaller PDA, no significant disease, minor irregularities, 40% proximal lesion. Left main coronary artery, long patent vessel. No significant disease. Bifurcates into LAD and circumflex. Left anterior descending coronary artery: Good caliber vessel, has multiple areas of diffuse disease throughout. Two focal areas of 85% to 90% and 80% to 85% located in the midportion at the origin of a small diagonal branch proximally and a large diagonal branch in the midportion after which the caliber of the vessel decreases, it runs all the way to the apex with mild diffuse disease. Two focal significant mid LAD and proximal LAD lesions were noted. Left posterior circumflex coronary artery nondominant vessel. Good caliber, good distribution, 35% to 40% mid narrowing, minor irregularities, otherwise no other significant disease. FINAL IMPRESSION: This patient has normal filling pressures and no gradient. Right-dominant system with 40% proximal RCA and 40% mid circumflex disease. LAD has diffuse disease, 2 focal areas of 85% to 90% and 80% to 85% in the proximal and midportion. RECOMMENDATIONS: Recommended PCI of LAD that was performed in the same setting. PCI PROCEDURE DETAILS: I used a JL3.5 guide catheter and I had a lot of difficulty coming down from the arch. However, I got a good decent guide support. A run-through wire was used to cross the lesion. A 2.5 caliber 15 mm NC Trek balloon was used to pre-dilate the proximal lesion. I deployed a 3.25 caliber 15 mm long Xience stent in the proximal lesion with excellent angiographic result. The flow in the small diagonal was well preserved. Then I noted that the mid lesion was also quite significant and this was addressed with an another wire I used along with a 90-degree angle SuperCross and a run-through long wire. With this combination, I gained access into the 2nd diagonal branch which was large. The 2nd diagonal was then dilated with 2.5 caliber 12 mm NC Trek balloon with a decent flow in the diagonal. I then deployed a 3.0 caliber 12 mm long Xience stent in the 2nd mid lesion. Excellent angiographic result was achieved. I performed intravascular ultrasound. I noted that the reference vessel was slightly larger than 3.0. I therefore used a 3.25 caliber NC Trek balloon of 12 mm length and postdilated the 2nd lesion as well as postdilated the distal stent as well as the proximal stent at high atmospheres of about 14 atmospheres. So, both the distal and proximal stents were post dilated with a 3.25 caliber NC Trek balloon with excellent angiographic result. The patient tolerated the procedure well. Intravascular ultrasound was performed which revealed good apposition of both the stents with a full expansion and excellent comparison with the reference diameter. The sheath was taken out and Angio-Seal device used to secure hemostasis. Patient received a total of 5000 units of heparin, ACT was about 305. Excellent angiographic result was achieved. Patient received 450 mg of Plavix. He was already on Plavix. He will be on aspirin and Plavix without interruption for 1 year. He was sent to the room in a stable condition. Details were discussed with the patient's and I expect the patient will be discharged in the next 24 hours. He will be on high dose of statins at 80 mg of Lipitor. MMODL / IJN: [id number] /
[2024-02-07 15:47] VITALS: RESP 18
--- NOTE | 2024-02-07 19:18 | P.HPIM ---
History of Present Illness H&P Date: 02/07/24 Chief Complaint: This pain This is a pleasant 73-year-old patient who follows with Dr. De Luna. Patient is accompanied by his . Chronic stable medical conditions include GERD, hard of hearing, hyperlipidemia, obstructive sleep apnea uses CPAP, psoriasis, empty HFR gene mutation,. Yesterday morning around 830 he is having his coffee with the developed pain across the chest. Some of the pain went up to his neck. No dizziness no lightheadedness no perspiration no nausea. Patient was taken down to local hospital. Received morphine there since initiation morphine did not relieve the pain but lasted for 2 hours. Troponin*get positive was transferred down here. Patient did receive 2 stents angioplasty stent to proximal and mid LAD and angioplasty of second major diagonal branch. Postprocedure laying in bed. No chest pain. 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 Alcohol occasionally. No smoking. Physical examination: VITAL SIGNS: 98, 61, 16, 122 x 67, 98% room air GENERAL: BMI 26.6, reclining bed awake not in distress. EYES: Pupils equal. Conjunctiva dhaval l. HEENT: External appearance of nose and ears normal, oral cavity grossly normal. NECK: JVD not raised; masses not palpable. HEART: First and second heart sounds are normal; no edema. LUNGS: Respiratory rate normal; clear to auscultation. ABDOMEN: Soft, nontender, liver spleen not palpable, no masses palpable. PSYCH: Alert and oriented x3; mood and affect dhaval l. MUSCULOSKELETAL:No Clubbing/cyanosis;muscles-grossly intact NEUROLOGICAL: Cranial nerves grossly intact; no facial asymmetry, power and sensation grossly intact. LYMPHATICS: No lymph nodes palpable in the axilla and neck INVESTIGATIONS, reviewed in the clinical context: February 06: Potassium 4.1 creatinine 0.77 February 05: White count 6.1 hemoglobin 14.3 platelets 141 potassium 5.3 creatinine 0.76 Troponin I 0.0453, 0.617, 0.723 LDL 136 EKG tracing personally reviewed by me-normal sinus rhythm Assessment and plan: -Acute non-Q wave NM. Aspirin. IV heparin. -CAD, 2 stents to the LAD. 1 to diagonal. Meat Cutting Teacher: Dr. KAELA Hood Aspirin. Lipitor. Plavix. Lopressor -Obstructive sleep apnea uses CPAP -Psoriasis -GERD Prilosec -Mild cognitive impairment [facility] -IV heparin monitoring Follow PTT Care was discussed with the patient and the at the bedside. Questions answered. 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), uses CPAP History of Any Multi-Drug Resistant Organisms: None Reported Past Surgical History: Appendectomy, Cholecystectomy, Orthopedic Surgery Additional Past Surgical History / Comment(s): UUUP - uvuloplasty, left hand little finger repair surgery, COLONOSCOPY Past Anesthesia/Blood Transfusion Reactions: Previous Problems w/ Anesthesia, Motion Sickness Additional Past Anesthesia/Blood Transfusion Reaction / Comment(s): diff breathing- "tube down too far in rt bronch" Smoking Status: Never smoker - Past Family History Sister(s) Family Medical History: Cancer Additional Family Medical History / Comment(s): skin cancer Medications and Allergies Home Medications Medication Instructions Recorded Confirmed Type Aspirin [Adult Low Dose Aspirin EC] 81 mg PO DAILY 09/17/15 02/06/24 History Clopidogrel Bisulfate [Plavix] 75 mg PO DAILY 09/17/15 02/06/24 History Cholecalciferol [Vitamin D3 (25 25 mcg PO DAILY 10/02/16 02/06/24 History Mcg = 1000 Iu)] Omeprazole Magnesium [PriLOSEC] 20 mg PO DAILY 07/01/21 02/06/24 History Galantamine HBr [[facility]] 24 mg PO DAILY 02/06/24 02/06/24 History Krill Oil(Unknown Dose) 1 cap PO DAILY 02/06/24 02/06/24 History Medium Chain Triglycerides [Mct 1 dose PO DAILY 02/06/24 02/06/24 History Oil] Sildenafil Citrate [Viagra] 100 mg PO DAILY PRN 02/06/24 02/06/24 History Allergies Allergy/AdvReac Type Severity Reaction Status Date / Time Sulfa (Sulfonamide Allergy headache Verified 02/06/24 19:26 Antibiotics) scotch 77 Allergy Rash/Hives- Uncoded 02/06/24 19:26 Physical Exam Vitals: Vital Signs Temp Pulse Pulse Resp BP Pulse Ox 02/07/24 08:51 61 16 122/67 98 02/07/24 08:01 68 02/07/24 07:33 66 16 124/75 96 02/07/24 07:00 58 L 18 122/75 96 02/07/24 04:00 60 16 112/69 97 02/07/24 03:52 58 L 16 97/54 96 02/06/24 22:50 58 L 16 124/50 98 02/06/24 19:05 58 L 16 123/71 95 02/06/24 17:21 54 L 18 103/64 98 02/06/24 16:00 98 F Intake and Output 02/06/24 02/07/24 02/07/24 22:59 06:59 14:59 Other: Weight 81.647 kg Results CBC & Chem 7: 02/06/24 16:19 02/07/24 06:55 Labs: Abnormal Lab Results - Last 24 Hours (Table) 02/06/24 02/06/24 02/06/24 Range/Units 16:19 16:19 16:19 Plt Count 141 L (150-450) k/uL APTT 76.0 H (22.0-30.0) sec Potassium 5.3 H (3.5-5.1) mmol/L Chloride 108 H (98-107) mmol/L BUN 23 H (9-20) mg/dL Troponin I (0.000-0.034) ng/mL 02/06/24 02/06/24 02/06/24 Range/Units 16:19 19:01 22:32 Plt Count (150-450) k/uL APTT (22.0-30.0) sec Potassium (3.5-5.1) mmol/L Chloride (98-107) mmol/L BUN (9-20) mg/dL Troponin I 0.453 H* 0.617 H* 0.723 H* (0.000-0.034) ng/mL
[2024-02-08] MEDS: LOSARTAN 25 MG TAB PO SCH (01:03)
[2024-02-08] MEDS ORDERED: HEPARIN SODIUM,PORCINE 10,000 UNIT in SODIUM CHLORIDE 0.9% 1,000 ML IRRIGATION PRN (07:00)
[2024-02-08] MEDS ORDERED: HEPARIN SODIUM,PORCINE (1 ML) 2,500 UNIT in SODIUM CHLORIDE 0.9% 250 ML IRRIGATION PRN (07:00)
[2024-02-08] MEDS: CLOPIDOGREL 75 MG TAB PO SCH (09:09)
[2024-02-08] MEDS: METOPROLOL TARTRATE 25 MG TAB PO SCH (09:09)
[2024-02-08 09:47] VITALS: TEMP 97
--- NOTE | 2024-02-08 10:12 | CA ---
Transthoracic Echo Report Name: Orestes Navas Age: 73 Gender: M : 1950 Exam Date: 02/07/2024 13:36 Exam Location: [facility] Ht (in): 69 Wt (lb): 180 Ordering Physician: Bryon Bermudez DO Attending/Referring Phys: [id number], Aidan Washerette Machine Operator Madie Curry RCS Procedure CPT: Indications: nstemi Cardiac Hx: Technical Quality: Poor Contrast 1: Total Dose (mL): Contrast 2: Total Dose (mL): MEASUREMENTS (Male / Female) Normal Values 2D ECHO LV Diastolic Diameter PLAX 4.6 cm 4.2 - 5.9 / 3.9 - 5.3 cm LV Systolic Diameter PLAX 2.8 cm IVS Diastolic Thickness 1.0 cm 0.6 - 1.0 / 0.6 - 0.9 cm LVPW Diastolic Thickness 1.0 cm 0.6 - 1.0 / 0.6 - 0.9 cm LV Relative Wall Thickness 0.4 RV Internal Dim ED PLAX 3.2 cm LVOT Diameter 2.0 cm Aortic Root Diameter 3.7 cm LV Diastolic Volume MOD BP 116.6 cm??? 67 - 155 / 56 - 104 cm??? LV Systolic Volume MOD BP 35.9 cm??? 22 - 58 / 19 - 49 cm??? LV Ejection Fraction MOD BP 69.2 % >= 55 % LV Cardiac Index MOD BP 2331.5 cm???/min???m??? LV Diastolic Volume MOD 4C 112.5 cm??? LV Systolic Volume MOD 4C 36.4 cm??? LV Ejection Fraction MOD 4C 67.6 % LV Cardiac Index MOD 4C 2199.5 cm???/min???m??? LV Diastolic Length 4C 8.8 cm LV Systolic Length 4C 7.0 cm LV Diastolic Volume MOD 2C 111.6 cm??? LV Systolic Volume MOD 2C 33.1 cm??? LV Ejection Fraction MOD 2C 70.4 % LV Cardiac Index MOD 2C 2268.1 cm???/min???m??? LV Diastolic Length 2C 8.1 cm LV Systolic Length 2C 6.5 cm Ascending Aorta Diameter 4.2 cm DOPPLER AV Peak Velocity 144.3 cm/s AV Peak Gradient 8.3 mmHg AV Mean Velocity 92.6 cm/s AV Mean Gradient 4.0 mmHg AV Velocity Time Integral 30.3 cm LVOT Peak Velocity 119.6 cm/s LVOT Peak Gradient 5.7 mmHg LVOT Velocity Time Integral 27.0 cm LVOT Stroke Volume 81.2 cm??? LVOT Stroke Volume Index 41.1 ml/m??? LVOT Cardiac Index 2346.2 cm???/min???m??? AV Area Cont Eq vti 2.7 cm??? AV Area Cont Eq pk 2.5 cm??? Mitral E Point Velocity 81.2 cm/s Mitral A Point Velocity 60.8 cm/s Mitral E to A Ratio 1.3 MV Deceleration Time 194.8 ms MV E' Velocity 6.7 cm/s Mitral E to MV E' Ratio 12.1 TR Peak Velocity 233.6 cm/s TR Peak Gradient 21.8 mmHg PV Peak Velocity 88.7 cm/s PV Peak Gradient 3.1 mmHg FINDINGS Left Ventricle Left ventricular ejection fraction is estimated at 60 %. Left ventricular cavity size normal. Left ventricular wall thickness normal. No obvious regional wall motion abnormalities. Right Ventricle Normal right ventricular size and function. Right ventricular systolic pressure within normal limits. Right Atrium Normal right atrial size. Left Atrium Normal left atrial size. Mitral Valve Structurally normal mitral valve. No mitral stenosis, regurgitation or prolapse. Aortic Valve Trileaflet aortic valve. No aortic valve stenosis or regurgitation. Tricuspid Valve Structurally normal tricuspid valve. No tricuspid stenosis. Trace tricuspid regurgitation. Pulmonic Valve Structurally normal pulmonic valve. No pulmonic stenosis. No pulmonic regurgitation. Pericardium No pericardial effusion. Aorta Aortic annulus normal. Mildly enlarged ascending aorta. CONCLUSIONS Normal LV size and systolic function without any wall motion abnormalities. No significant abnormality on the Doppler exam. No pulmonary hypertension. No pericardial effusion Previewed by: Dr. Willa Hood MD (Electronically Signed) Final Date: 08 February 2024 10:11
[2024-02-08 11:26] LABS: African American GFR (CKD) >90 (>60 ml/min/1.73 sqM); Anion Gap 5 mmol/L; Blood Urea Nitrogen 16 mg/dL (9-20); Calcium 8.8 mg/dL (8.4-10.2); Carbon Dioxide 27 mmol/L (22-30); Chloride 107 mmol/L (98-107); Glucose 102 mg/dL (74-99); Non-African American GFR(CKD) >90 (>60 ml/min/1.73 sqM); Sodium 139 mmol/L (137-145)
[2024-02-08 13:09] VITALS: BP 106/55; PULSE 55
--- NOTE | 2024-02-08 15:07 | P.PN ---
Subjective Progress Note Date: 02/08/24 Reason for Consult (text): NSTEMI History of present illness: This is a 73-year-old male with past medical history of 2 TIAs 15 years ago, obstructive sleep apnea on CPAP, gastroesophageal reflux disease, hyperlipidemia. Patient states that he developed mid chest pain that radiated to his jaw. He was at rest at the time and drinking tea. He has never had anything like this before. He is usually very active and uses an elliptical machine on a regular basis. He denies having any chest pain at the time of this evaluation. Patient is seen today in the emergency center waiting for bed on the cardiac stepdown unit. He has been started on heparin drip, morphine, aspirin and Nitrostat. Patient initially presented to [facility] was transferred to [facility] ER. EKG sinus rhythm with no acute ST changes. Hemoglobin 14.3, platelet count 141. INR 1. Sodium 138, potassium 5.3, BUN 23 creatinine 0.76. Troponins 0.453, 0.617, 0.723. Liver function tests are normal. Magnesium 2.1. Phosphorus 3.6. proBNP 50. Home cardiac medications: Aspirin 81 mg daily, Plavix 75 mg daily. 02/07 Yesterday, patient underwent cardiac catheterization with Dr. KAELA Hood which revealed right dominant system with 40% proximal RCA and 40% mid circumflex disease. LAD has diffuse disease, 2 focal areas of 85% to 90% and 80% 85% in the proximal and midportion. Patient subsequently underwent PCI of the LAD. Echocardiogram reveals EF of 60%. No significant abnormality on Doppler exam. No pulmonary hypertension. No pericardial effusion. Patient denies having any chest pain or shortness of breath. Blood pressure 131/63, heart rate in the 60s, pulse ox 98% on room air. Repeat blood work reveals BUN 16 creatinine 0.75. Physical examination: Gen: This is a 73-year-old male in no acute distress VS: reviewed HEENT: Head is atraumatic, normocephalic. Pupils equal, round. Sclerae is anicteric. NECK: Supple. No JVD. LUNGS: Clear to auscultation. No wheezes or rhonchi. No intercostal retractions. HEART: Regular rate and rhythm. ABDOMEN: Soft No tenderness. EXTREMITIES: No pedal edema. No calf tenderness. NEUROLOGICAL: Patient is awake, alert and oriented x3. Assessment: Non-ST elevated myocardial infarction status post PCI of the LAD TIA x 2 Hyperlipidemia Obstructive sleep apnea on CPAP Gastroesophageal reflux disease Plan: Continue current cardiac medications: Aspirin 81 mg daily, atorvastatin 80 mg daily, Plavix 75 mg daily, metoprolol tartrate 25 mg daily, losartan 25 mg at bedtime, Nitrostat Patient is cleared from cardiology for discharge home and may follow-up with Dr. Jordan in 1 week. Nurse practitioner note has been reviewed, I agree with documented findings and plan of care. Patient was seen and examined. Objective - Vital Signs Vital signs: Vital Signs Temp 97 F L 02/08/24 08:00 Pulse 65 02/08/24 08:00 Resp 18 02/08/24 08:00 BP 131/63 02/08/24 08:00 Pulse Ox 98 02/08/24 08:00 FiO2 Intake & Output 02/07/24 02/08/24 02/08/24 18:59 06:59 18:59 Intake Total 690 Balance 690 Weight 81.647 kg Intake: IV 450 Oral 240 Other: Voiding Method Toilet # Voids 2 2 - Labs CBC & Chem 7: 02/06/24 16:19 02/08/24 10:29 Labs: Abnormal Lab Results - Last 24 Hours (Table) 02/07/24 02/07/24 Range/Units 06:55 06:55 Chloride 110 H (98-107) mmol/L Cholesterol 205.00 H (0.00-200.00) mg/dL LDL Cholesterol, Calc 136.0 H (0.0-131.0) mg/dL
--- NOTE | 2024-02-08 15:40 | P.PN ---
Progress Note - Text Progress Note Date: 02/08/24 Chief Complaint: This pain This is a pleasant 73-year-old patient who follows with Dr. De Luna. Patient is accompanied by his . Chronic stable medical conditions include GERD, hard of hearing, hyperlipidemia, obstructive sleep apnea uses CPAP, psoriasis, empty HFR gene mutation,. Yesterday morning around 830 he is having his coffee with the developed pain across the chest. Some of the pain went up to his neck. No dizziness no lightheadedness no perspiration no nausea. Patient was taken down to local hospital. Received morphine there since initiation morphine did not relieve the pain but lasted for 2 hours. Troponin*get positive was transferred down here. Patient did receive 2 stents angioplasty stent to proximal and mid LAD and angioplasty of second major diagonal branch. Postprocedure laying in bed. No chest pain. February 07: Doing well. No cardiac symptoms. Did ambulate. Discussed with the patient at the bedside. 2D echo shows preserved LV function. 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. Alcohol occasionally. No smoking. Physical examination: VITAL SIGNS: 97, 65, 18, 131 x 63, 98% room air GENERAL: In a chair comfortable. EYES: Pupils equal. Conjunctiva dhaval l. HEENT: External appearance of nose and ears normal, oral cavity grossly normal. NECK: JVD not raised; masses not palpable. HEART: First and second heart sounds are normal; no edema. LUNGS: Respiratory rate normal; clear to auscultation. ABDOMEN: Soft, nontender, liver spleen not palpable, no masses palpable. PSYCH: Alert and oriented x3; mood and affect dhaval l. MUSCULOSKELETAL:No Clubbing/cyanosis;muscles-grossly intact INVESTIGATIONS, reviewed in the clinical context: 2D echocardiogram: Normal LV function February 07: Potassium 4 creatinine 0.75 February 06: Potassium 4.1 creatinine 0.77 February 05: White count 6.1 hemoglobin 14.3 platelets 141 potassium 5.3 creatinine 0.76 Troponin I 0.0453, 0.617, 0.723 LDL 136 EKG tracing personally reviewed by me-normal sinus rhythm Assessment and plan: -Acute non-Q wave [place]. Aspirin. IV heparin. -CAD, 2 stents to the LAD. 1 to diagonal. Sailor: Dr. KAELA Hood Aspirin. Lipitor. Plavix. 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
[2024-02-08] MEDS: METOPROLOL SUCCINATE (ER) 25 MG TAB.ER.24H PO SCH (16:23)
== END 2024-02-08 16:45 | disposition home or self-care (01) | DRG 322 ==
LOC: EC 15:58 → 3SCARD 18:00 → 3NCARDOBS 02-08 00:59 → 3SCARD 02-08 01:04
PROVIDERS: ADMIT Hospitalist; ATTEND Hospitalist
PROC: B2111ZZ Fluoroscopy of Multiple Coronary Arteries using Low Osmolar Contrast (ICD-10-PCS; principal; 2024-02-07 14:30)
PROC: 027035Z Dilation of Coronary Artery, One Artery with Two Drug-eluting Intraluminal Devices, Percutaneous Approach (ICD-10-PCS; principal; 2024-02-07 14:30)
PROC: B240ZZ3 Ultrasonography of Single Coronary Artery, Intravascular (ICD-10-PCS; principal; 2024-02-07 14:30)
PROC: 4A023N7 Measurement of Cardiac Sampling and Pressure, Left Heart, Percutaneous Approach (ICD-10-PCS; principal; 2024-02-07 14:30)
DX: I21.4 Non-ST elevation (NSTEMI) myocardial infarction (principal); G47.33 Obstructive sleep apnea (adult) (pediatric); K21.9 Gastro-esophageal reflux disease without esophagitis; E78.5 Hyperlipidemia, unspecified; H91.90 Unspecified hearing loss, unspecified ear; L40.9 Psoriasis, unspecified; R00.1 Bradycardia, unspecified; I77.1 Stricture of artery; G31.84 Mild cognitive impairment of uncertain or unknown etiology; I25.10 Atherosclerotic heart disease of native coronary artery without angina pectoris; J45.909 Unspecified asthma, uncomplicated; Z88.2 Allergy status to sulfonamides; Z79.82 Long term (current) use of aspirin; Z79.02 Long term (current) use of antithrombotics/antiplatelets; Z85.828 Personal history of other malignant neoplasm of skin; Z86.73 Personal history of transient ischemic attack (TIA), and cerebral infarction without residual deficits
CPT/HCPCS: 36415; 80048; 80053; 80061; 83735; 83880; 84100; 84484; 85025; 85610; 85730; 92921; 92978; 93005; 93306; 93458; 96365; 96366; 99291